=== PATIENT | female | born 1975 | race Caucasian/White ===

== ENCOUNTER 2017-09-03 17:38 | Emergency (ER) | payer OTHER ==
[2017-09-03 18:42] LABS: Bilirubin Negative (Negative); Blood, Urine Negative (Negative); Glucose, Urine (Dipstick) Negative (Negative); Ketone, Urine Trace mg/dL (Negative); Nitrite Negative (Negative); Protein, Urine (Dipstick) Negative (Neg-Trace); Urobilinogen 0.2 mg/dL (0.2-1.0)
[2017-09-03 19:40] LABS: #Monocytes 0.2 thou/uL (0.11-0.59); #Neutrophils 5.8 thou/uL (1.40-6.50); %Basophils 0.2 % (0.0-1.0); %Eosinophils 0.3 % (0.0-10.0); %Lymphocytes 14.2 % (21.0-51.0); %Monocytes 2.4 % (0.0-10.0); Hematocrit 46.6 % (36.0-47.0); Mean Platelet Volume 7.2 fL (7.4-10.4); Red Blood Cell (RBC) Count 4.97 mill/uL (4.20-5.40)
[2017-09-03 19:41] LABS: Lipase 20 U/L (8-78)
--- NOTE | 2017-09-03 19:42 | CT ---
CT OF BRAIN PERFORMED WITHOUT CONTRAST ENHANCEMENT: History: Headache. FINDINGS: The ventricular and cisternal system is within normal limits. There are no signs of intracerebral he morrhage or extraaxial fluid collections. The mastoid air cells and visualized sinuses are clear. IMPRESSION: No acute intracranial abnormalities. POS: [facility]
[2017-09-03 19:49] LABS: PTT 33.2 SEC (22.9-36.1); Prothrombin Time 13.6 SEC (12.0-14.7)
[2017-09-03 20:02] LABS: Amphetamine Detected (NotDetected); Methadone Not Detected (NotDetected); Methamphetamine Not Detected (NotDetected)
--- NOTE | 2017-09-03 21:55 | MRI ---
MRI OF LUMBAR SPINE PERFORMED WITH AND WITHOUT CONTRAST ENHANCEMENT: History: Right lower back pain. Patient reportedly has a cyst on back that she thinks is leaking CSF . FINDINGS: Vertebral bodies are normal in height. Disc desiccation changes of lower lumbar spine noted. There i s disc narrowing at L5-S1. There is no significant periaortic adenopathy and the visualized portions of the kidneys appear unremarkable. The cord terminates in an appropriate level. There is no eviden ce of abnormal enhancement. Right sided nerve root sleeve cyst is incidentally noted at the T12-L1 l evel. L1-2: Unremarkable. L2-3: Unremarkable. L3-4: Mild disc bulge is present. Canal shows some borderline narrowing of the facet hypertrophic ch carmen. L4-5: No significant canal or foraminal stenosis. L5-S1: Unremarkable. IMPRESSION: Degenerative changes along the course of the lumbar spine mainly related to degenerative facet lopez es. No signs of canal or foraminal stenosis. POS: [facility]
== END 2017-09-03 23:17 | disposition home or self-care (01) ==
LOC: ERS 17:38
DX: M54.5 Low back pain (principal)
CPT/HCPCS: 36415; 70450; 72158; 80306; 81003; 83690; 83735; 85025; 85610; 85730; 86140; 96360; 96361

== ENCOUNTER 2019-03-12 10:08 | Outpatient (CLI) | payer BC ==
--- NOTE | 2019-03-12 11:35 | MRI ---
MRI Cervical Spine WO Con History: [M 54.12 cervical radiculopathy] Comparison: Cervical spine radiographs October 02, 2018 Findings: The cerebellar tonsils terminate at the level of the foramen magnum. Paraspinal musculature is normal. No adenopathy. There is mild increased fluid signal of the cord at the level of C5/C6. There is an abnormal T2 hyperdense focus likely nerve sheath cyst on the right at C6/C7. Levels are as follows: C2/C3: Normal disc. No neural foraminal or spinal canal narrowing. C3/C4: Normal disc. No neural foraminal or spinal canal narrowing. C4/C5: Small bilateral posterior disc osteophyte complex in the subarticular zones. Moderate right-si ded neural foraminal narrowing. No spinal canal narrowing. C5/C6: There is a large right paracentral, subarticular, and subforaminal posterior disc osteophyte c omplex with superimposed disc herniation. This abuts the cord. This causes severe right-sided neural foraminal narrowing. This does narrow the spinal canal in the AP dimension to approximately 6 mm. There is subligamentous edema. Mild facet arthrosis bilaterally. C6/C7: Normal disc. No neural foraminal or spinal canal narrowing. Mild facet arthrosis. Impression: Spondylosis centered at C5/C6 with large right paracentral, subarticular, and subforamina l posterior disc osteophyte complex with superimposed disc herniation abutting the cord and causing severe right-sided neural foraminal narrowing.
== END 2019-03-12 10:09 | disposition home or self-care (01) ==
LOC: TBSIIMAG 10:08
PROVIDERS: ATTEND Neurological Surgery
DX: M47.22 Other spondylosis with radiculopathy, cervical region (principal); M50.122 Cervical disc disorder at C5-C6 level with radiculopathy; M48.02 Spinal stenosis, cervical region; M25.78 Osteophyte, vertebrae
CPT/HCPCS: 72141

== ENCOUNTER 2019-09-27 08:11 | Outpatient (CLI) | payer BC ==
--- NOTE | 2019-09-27 10:17 | MMO ---
Bilateral MAMMO Bilat Screen [facility]. CLINICAL HISTORY: Patient is 44 years old and is seen for screening. The patient has the following family history of breast cancer: maternal aunt, at age 33 and maternal aunt, at age 40, [place]. The patient has no personal history of cancer. The patient has a history of bilateral Implants in 2010. VIEWS: The views performed were: bilateral craniocaudal; bilateral mediolateral oblique; and bilateral Implant displaced with tomosynthesis. FILMS COMPARED: The present examination has been compared to prior imaging studies performed at [facility] on 05/09/2011, and at [facility] on 08/04/2003 and 06/11/2008. This study has been interpreted with the assistance of computer-aided detection. MAMMOGRAM FINDINGS: There are scattered fibroglandular densities. There is a lobular mass measuring 10 millimeters seen in the outer region of the right breast. In the left breast, there are no suspicious masses, calcifications or areas of architectural distortion. IMPRESSION: MASS IN THE RIGHT BREAST REQUIRES ADDITIONAL EVALUATION. ADDITIONAL IMAGING. Recommend diagnostic mammography and focused ultrasound. THE RESULTS OF THIS EXAM WERE SENT TO THE PATIENT. ACR BI-RADS Category 0 - Incomplete: Need additional imaging evaluation. [facility] will notify the patient of the need for additional imaging services. MAMMOGRAPHY NOTE: 1. A negative mammogram report should not delay a biopsy if a dominant of clinically suspicious mass is present. 2. Approximately 10% to 15% of breast cancers are not detected by mammography. 3. Adenosis and dense breasts may obscure an underlying neoplasm. Reported by: RODNEY STOVER MD Electonically Signed: [id number]
== END 2019-09-27 08:12 | disposition home or self-care (01) ==
LOC: BICMAMMO 08:11
PROVIDERS: ATTEND Family Medicine
DX: Z12.31 Encounter for screening mammogram for malignant neoplasm of breast (principal); Z80.3 Family history of malignant neoplasm of breast; N63.10 Unspecified lump in the right breast, unspecified quadrant; Z98.82 Breast implant status
CPT/HCPCS: 77063; 77067

== ENCOUNTER 2019-10-02 13:18 | Outpatient (CLI) | payer BC ==
--- NOTE | 2019-10-02 13:49 | MMO ---
Right Breast MAMMO Unilat Diag [facility]DI RT+MILAGRO. CLINICAL HISTORY: Patient is 44 years old and is seen for additional evaluation requested from prior study. The patient has the following family history of breast cancer: maternal aunt, at age 33 and maternal aunt, at age 40, [place]. The patient has no personal history of cancer. The patient has a history of bilateral Implants in 2010. VIEWS: The views performed were: right craniocaudal spot compression with tomosynthesis; right mediolateral; right mediolateral with tomosynthesis; and right Implant displaced with tomosynthesis. FILMS COMPARED: The present examination has been compared to prior imaging studies performed at [facility] on 05/09/2011, 09/27/2019 and 10/02/2019, and at [facility] on 06/11/2008. This study has been interpreted with the assistance of computer-aided detection. MAMMOGRAM FINDINGS: There are scattered fibroglandular densities. The density in the right anterior outer breast close to the nipple persists and corresponds to a cyst on US at 9:00 position. There are no suspicious masses, suspicious calcifications, or new areas of architectural distortion. IMPRESSION: THERE IS NO MAMMOGRAPHIC EVIDENCE OF MALIGNANCY. A ROUTINE FOLLOW-UP MAMMOGRAM IN 1 YEAR IS RECOMMENDED. THE RESULTS OF THIS EXAM WERE SENT TO THE PATIENT. ACR BI-RADS Category 2 - Benign finding MAMMOGRAPHY NOTE: 1. A negative mammogram report should not delay a biopsy if a dominant of clinically suspicious mass is present. 2. Approximately 10% to 15% of breast cancers are not detected by mammography. 3. Adenosis and dense breasts may obscure an underlying neoplasm. Reported by: BIANCA CAGE MD Electonically Signed: [id number]
--- NOTE | 2019-10-02 13:57 | ULT ---
RIGHT BREAST ULTRASOUND: HISTORY: Abnormal mammogram of 09/27/2019. FINDINGS: Correlation is made with the mammograms of 09/27/2019 and 10/02/2019. There is a cyst with thin internal septations measuring 11 x 4 x 6 mm at the 9 o'clock position of th e right breast 2 cm from the nipple corresponding to the mammographic abnormality. IMPRESSION: BIRADS category 2 - benign findings. Return to annual mammographic screening. POS: OFF
== END 2019-10-02 13:19 | disposition home or self-care (01) ==
LOC: BICMAMMO 13:18
PROVIDERS: ATTEND Family Medicine
DX: N63.10 Unspecified lump in the right breast, unspecified quadrant (principal); Z80.3 Family history of malignant neoplasm of breast
CPT/HCPCS: G0279

== ENCOUNTER 2020-08-18 13:47 | Emergency (ER) | payer BC, OTHER, SELFPAY ==
[~2020-08-18 13:47] MED LIST: Iopamidol-370 76% 500 ML 1 ML ONE
[2020-08-18] MEDS ORDERED: Dexamethasone 10 MG/ML VIAL ONE (14:14)
--- NOTE | 2020-08-18 14:46 | RAD ---
r RADIOGRAPH CHEST 1 VIEW: DATE: 08/18/2020 TIME: 2:30 PM HISTORY: 45 year old female with dyspnea COMPARISON: 11/04/2009 FINDINGS: Hyperlucency of the bilateral mid and upper lung zones appears greater now than previously, questiona ble for COPD. Cardiomediastinal silhouette and bilateral hilar shadows appear normal. Lateral costophrenic angles a re sharp. No consolidation or pulmonary edema. New small focal scar at right midlung zone. New finding of an irregularly-shaped 3 x 1.5 cm density overlying the right lower lung zone. IMPRESSION: 1) new, irregularly-shaped 30 mm nodular density overlying the right lower lung zone. Etiology uncert ain. Possibilities include scar, primary neoplasm, and less likely infectious/inflammatory process. 2) questionable emphysema.
[2020-08-18 15:06] LABS: #Eosinphils 0.1 thou/uL (0.0-0.7); #Lymphocytes 1.9 thou/uL (1.20-3.40); #Monocytes 0.5 thou/uL (0.11-0.59); #Neutrophils 3.2 thou/uL (1.40-6.50); %Basophils 0.8 % (0.0-1.0); %Eosinophils 2.3 % (0.0-10.0); %Lymphocytes 33.2 % (21.0-51.0); %Neutrophils 55.7 % (42.0-75.0); Hemoglobin 15.3 g/dL (12.0-16.0); Mean Corpuscular HGB CONC 33.3 g/dL (32.0-36.0); Mean Corpuscular Hemoglobin 29.9 pg (27.0-31.0); Mean Corpuscular Volume 89.9 fL (78.0-98.0); Mean Platelet Volume 7.7 fL (7.4-10.4); Platelet Count 370 thou/uL (130-400); RBC Distribution Width 11.6 % (11.5-14.5); Red Blood Cell (RBC) Count 5.11 mill/uL (4.20-5.40); White Blood Cell (WBC) Count 5.8 thou/uL (4.8-10.8)
[2020-08-18 15:13] LABS: Bacteria/HPF None Seen HPF (None Seen); Bilirubin Negative (Negative); Blood, Urine Negative (Negative); Clarity Clear (Clear); Glucose, Urine (Dipstick) Normal (Negative); Ketone, Urine Negative (Negative); Leukocyte 250 Leu/uL (Negative); Nitrite Negative (Negative); Protein, Urine (Dipstick) Negative (Neg-Trace); RBC/HPF 0-3 HPF (0-3); Specific Gravity, Urine 1.019 (1.002-1.036); Urobilinogen Normal mg/dL (Less than 2)
[2020-08-18 15:28] LABS: BHCG - Serum Negative (NEGATIVE); Pregs Control Background? CLEAR/WHITE (CLR/WHITE); Pregs Control Bar Appear? YES (CONTROL BAR)
[2020-08-18 15:30] LABS: ALT (SGPT) 14 U/L (8-55); AST (SGOT) 20 U/L (5-34); Albumin 4.6 g/dL (3.5-5.0); Alkaline Phosphatase 97 U/L (40-110); Anion Gap 12 mmol/L (10-20); BUN (Urea Nitrogen) 17 mg/dL (7.0-18.7); Bilirubin, Total 0.8 mg/dL (0.2-1.2); CK (CPK) 41 U/L (29-168); Calc. Creatinine Clearance 0 mL/min (70-130); Calcium 10.1 mg/dL (7.8-10.44); Carbon Dioxide 30 mmol/L (22-29); Chloride 102 mmol/L (98-107); Estimated GFR-MDRD 74; Globulin 3.1 g/dL (2.4-3.5); Glucose 88 mg/dL (70-105); Lipase 52 U/L (8-78); Potassium 4.3 mmol/L (3.5-5.1); Protein, Total 7.7 g/dL (6.0-8.3); Sodium 140 mmol/L (136-145)
[2020-08-18] MEDS ORDERED: Enoxaparin Sodium 80 MG/0.8 ML SYRINGE ONE (15:39)
[2020-08-18] MEDS ORDERED: Aspirin Chewable 81 MG TAB ONE (15:39)
[2020-08-18] MEDS ORDERED: Azithromycin 500 MG VIAL ONE (15:54)
[2020-08-18] MEDS ORDERED: cefTRIAXone\\ROCEPHIN 2 GM VIAL ONE (15:54)
--- NOTE | 2020-08-18 16:21 | CT ---
CT PULMONARY ANGIOGRAM WITH IV CONTRAST AND 3-D POSTPROCESSING: HISTORY:Diagnosed with COVID19 on 07/31/2020. Had some improvement in symptoms but is now getting wors e. FINDINGS: There is good contrast opacification of the pulmonary arterial vasculature without filling defects to suggest pulmonary embolism. The thoracic aorta is well opacified without aneurysm or dissection. No pleural or pericardial effusions are seen. No pneumothoraces or lung nodules are noted. There are mild patchy areas of consolidation in the post erior lung bases, right greater than left. There are degenerative changes in the spine. Bilateral breast implants are present. Upper abdominal tomograms are unremarkable. IMPRESSION: 1. No CT evidence of pulmonary embolism. 2. Possibility of Covid19 pneumonia should be considered.
--- NOTE | 2020-08-29 13:02 | EKG ---
Test Reason : Blood Pressure : / mmHG Vent. Rate : 099 BPM Atrial Rate : 099 BPM P-R Int : 138 ms QRS Dur : 086 ms QT Int : 370 ms P-R-T Axes : 080 057 076 degrees QTc Int : 474 ms Normal sinus rhythm Possible Left atrial enlargement Borderline ECG Confirmed by BLAS JACOB, TAMI ([id number]), mapping editor KRISTINA NUNES ([id number]) on 08/29/2020 1:01:22 PM Referred By: Confirmed By:TAMI ODONNELL MD
== END 2020-08-18 17:45 | disposition home or self-care (01) ==
LOC: ERS 13:47
DX: U07.1 COVID-19 (principal); J12.89 Other viral pneumonia; F90.9 Attention-deficit hyperactivity disorder, unspecified type
CPT/HCPCS: 71045; 71275; 80053; 81003; 81015; 82550; 83690; 83880; 84484; 84703; 85025; 85379; 93005; 96365; 96367; 96372; 96375; J0456; J0696; J1100; J1650; Q9967